=== PATIENT | male | born 1985 | race Two or more races ===

== ENCOUNTER 2022-10-30 19:11 | Emergency (ER) | payer OTHER ==
[~2022-10-30] VITALS: Ht 175.3 cm; Wt 70.3 kg
--- NOTE | 2022-10-30 19:29 | NUR ---
[email or web address] from [place] for OD, given 2 spr narcan and 2mg IM. alert/awake on arrival. Pt breathing evenly and unlabored. pt attached to monitor and pox. Pt given blanket and call light within reach. Will continue to monitor.
[2022-10-30 21:05] VITALS: BP 140/88
--- NOTE | 2022-10-30 21:05 | NUR ---
Patient discharged to home in stable condition. Written and verbal after care instructions given. Patient verbalizes understanding of instruction.
== END 2022-10-30 21:05 | disposition home or self-care (01) ==
LOC: ER 19:13
DX: R40.4 Transient alteration of awareness (principal); T50.991A Poisoning by other drugs, medicaments and biological substances, accidental (unintentional), initial encounter; Y92.830 Public park as the place of occurrence of the external cause
CPT/HCPCS: 82962-TC